=== PATIENT | female | born 1960 | race Caucasian/White ===

== ENCOUNTER → 2020-06-26 14:30 | Outpatient (BNVA) | payer OTHER, SELFPAY | PROVIDERS: PCP Internal Medicine; Visit Provider Internal Medicine | DX: R06.02 Shortness of breath (principal); R07.2 Precordial pain | CPT/HCPCS: 93005; 99202 ==

== ENCOUNTER → 2020-07-19 08:19 | Outpatient (REF) | payer OTHER, SELFPAY ==
--- NOTE | 2020-07-19 08:28 | CA_ITS ---
Transthoracic Echocardiogram Patient (Last, First, Middle): Grace Rider, Gender: Female Date of : 1960 Age: 60 Procedure Date: 07/19/2020 Procedure Type: Transthoracic Echocardiogram Location: OP Height: 167.64 cm Weight: 77.11 kg BSA: 1.87 m2 Heart Rate: bpm BP: 120 / 62 mmHg Industrial Electrician: ADARSH Referring MD: Tom Palacio MD Symptoms: R06.02 - Shortness of breath Study Quality: Good ECG Rhythm: Sinus Conclusions: - The left ventricular systolic function is normal. The visually estimated ejection fraction is between 65-70%. - No obvious valvular pathology seen on this study. Findings Left Ventricle Normal left ventricular cavity size. There is normal left ventricular wall thickness. The left ventricular systolic function is normal. The visually estimated ejection fraction is between 65-70%. There is no evidence of regional wall motion abnormalities. Diastolic function is normal for age. Right Ventricle Normal right ventricular cavity size and systolic function. Atria The left atrium is normal in size. The right atrium is normal in size. Aortic Valve The aortic valve was not well visualized. There is no aortic valve stenosis. There is no aortic valve regurgitation. Mitral Valve The mitral valve appears normal. There is trace mitral valve regurgitation. There is no mitral valve stenosis. Pulmonic Valve The pulmonic valve was not well visualized. Tricuspid Valve Normal tricuspid valve structure. There is trace tricuspid valve regurgitation. The pulmonary artery systolic pressure is normal. Great Vessels The aorta was not well visualized. The aortic annulus and aortic arch are normal in size. Venous The inferior vena cava is normal in size and collapses greater than 50% with inspiration. Pericardium/Pleural There is no evidence of pericardial effusion. Prior Study Comparison No prior study available for comparison. Recommendations, Care & Conclusions No obvious valvular pathology seen on this study. Measurements 2D Linear Measurements IVSd: 0.87 0.6-0.9/0.6-1.0 cm LVIDd: 3.44 3.9-5.3/4.2-5.9 cm LVIDd Index: 1.84 2.4-3.2/2.2-3.1 cm/m2 LVIDs: 2.48 2.0-3.6 cm LVPWd: 0.73 0.7-1.1 cm Ao Root: 2.30 2.1-3.5 cm LA Diam: 2.70 2.7-3.8/3.0-4.0 cm LAIDs Index: 1.44 1.5-2.3 cm/m2 LV Mass: 90.65 67-162/88-224 g LV Mass Index: 48.48 43-95/49-115 g/m2 LVOT Diam: 1.80 3.0+(-)1.3 cm 2D Systolic Function EF 4C: 81.20 >55% EF 2C: 78.30 >55% EF BiP: 78.60 >55% Mitral Valve MV Pk E: 0.67 MV PK A: 0.47 MV Decel Time: 158.00 E/A: 1.40 E'Lateral: 10.80 E'Medial: 8.32 E/E' Med: 8.10 E/E' Lat: 6.20 PHT: 46.00 MVA PHT: 4.78 Decel Starke: 4.26 Aortic Valve AoV Pk Betito: 1.00 AoV Pk Grad: 4.00 LVOT LVOT Pk Betito: 0.94 LVOT Mn Betito: 0.56 LVOT VTI: 0.18 LVOT Pk Grad: 4.00 LVOT Mn Grad: 2.00 LVOT Diam: 1.80 LVOT Area: 2.54 Diastolic Function MV Pk E: 0.67 MV Pk A: 0.47 E/A: 1.40 E'Medial: 8.32 E/E' Med: 8.10 E' Laterial: 10.80 E/E' Lat: 6.20 Tricuspid Valve TR Pk Betito: 2.04 TR Pk Grad: 17.00 RA Press: 3.00 RVSP: 20.00 Great Vessels Aorta Ao Root-2D: 2.30 2.0-3.7 cm Updated in Other Vendor System with Status of Final Tom Palacio MD electronically signed on 07/20/2020 12:58:24 PM with status of Final
--- NOTE | 2020-07-19 08:28 | CA_ITS ---
Acquisition Time: 2020-07-19 10:34:30 Total Exercise Time: 00:06:11 Test Indications: Dyspnea Medications: LEVOTHYROXINE Protocol: ZACKERY Max HR: 157 BPM 96% of Pred: 162 BPM Max BP: 148/084 mmHG Max Work Load: 7.2 METS Exercise stress test using Zackery protocol. Total of 6 min 11 sec. METS 7.2 , MHR of 157 and MAPHR up to 96 %. Pt tolerated well, some SOB without any anginal sx. EKG with some PVC's no ischemic changes seen during exercise or in recovery . Normotensive response to exercise. Test reviewed with Dr. Palacio. Referred By: Tom Palacio Overread By: Devon Bolden
== END ==
LOC: HO.CARD 08:19
PROVIDERS: Visit Provider Internal Medicine
DX: R07.2 Precordial pain (principal); R06.02 Shortness of breath
CPT/HCPCS: 93017; 93306

== ENCOUNTER → 2020-07-26 14:10 | Outpatient (BNVA) | payer OTHER, SELFPAY | PROVIDERS: PCP Internal Medicine; Visit Provider Internal Medicine | DX: R06.02 Shortness of breath (principal); R07.2 Precordial pain | CPT/HCPCS: 99212 ==

== ENCOUNTER 2020-08-08 11:01 | Outpatient (REF) | payer OTHER, SELFPAY ==
--- NOTE | 2020-08-08 11:00 | PFT_ITS ---
INDICATION: Dyspnea. SPIROMETRY: The FEV1 to FVC of 81% with an FEV1 of 2.52 L, which is 90% predicted, and an FVC of 3.12 L, which is 86% predicted. No significant response to bronchodilators noted. Maximum voluntary ventilation was normal at 118% predicted. LUNG VOLUMES: Total lung capacity 104% predicted. DIFFUSION CAPACITY: DLCO 80% predicted. COMPARISONS: None. INTERPRETATION: No obstructive nor restrictive ventilatory defect. No significant response to bronchodilators noted. Normal maximum voluntary ventilation. Lung volumes are within normal limits. The patient has a low normal diffusion capacity. If asthma is in the differential, methacholine challenge may be helpful in assessing for hyper-reactive airways, otherwise clinical correlation warranted. Gideon Simmons MD MR/MODL / [id number]
--- NOTE | 2020-08-08 11:59 | XR_ITS ---
EXAMINATION: XR CHEST CLINICAL INFORMATION: Shortness of breath. COMPARISON: None TECHNIQUE: 2 views of the chest were obtained. FINDINGS: No significant abnormality is noted involving the heart, lungs, mediastinum, bony thorax or soft tissues. XR/XR chest 2V IMPRESSION: No acute cardiopulmonary process.
== END 2020-08-08 11:02 | disposition home or self-care (01) ==
LOC: HO.RESP 11:01
PROVIDERS: PCP Internal Medicine; Visit Provider Internal Medicine
DX: R06.02 Shortness of breath (principal)
CPT/HCPCS: 71046; 94060; 94727; 94729

== ENCOUNTER → 2020-08-16 11:06 | Outpatient (BNVA) | payer OTHER, SELFPAY | PROVIDERS: PCP Internal Medicine; Visit Provider Internal Medicine | DX: R06.02 Shortness of breath (principal); R07.2 Precordial pain; R94.2 Abnormal results of pulmonary function studies | CPT/HCPCS: 99212 ==

== ENCOUNTER → 2020-09-11 11:36 | Outpatient (BNVA) | payer OTHER, SELFPAY | PROVIDERS: PCP Internal Medicine; Visit Provider Internal Medicine Pulmonary Disease | DX: R06.02 Shortness of breath (principal); R07.2 Precordial pain | CPT/HCPCS: 99202 ==

== ENCOUNTER → 2020-10-02 11:29 | Outpatient (BNVA) | payer OTHER, SELFPAY | PROVIDERS: PCP Internal Medicine; Visit Provider Internal Medicine Pulmonary Disease | DX: K21.9 Gastro-esophageal reflux disease without esophagitis (principal) | CPT/HCPCS: Q3014 ==

== ENCOUNTER 2020-10-29 08:03 | Outpatient (REF) | payer OTHER, SELFPAY ==
[2020-10-29 10:35] LABS: MANUAL DIFF FLAG NO
[2020-10-29 10:47] LABS: Basophils Percent Auto 0.4 % (0-2); Eosinophils Absolute Auto 0.1 X10*3/uL (0.0-0.4); Eosinophils Percent Auto 1.6 % (0-4); Hematocrit 39.6 % (37-47); Imm Gran Abs Auto 0.02 X10*3/uL (0.00-0.03); Imm Gran Pct Auto 0.3 % (0.0-0.4); Lymphocytes Absolute Auto 2.6 X10*3/uL (1.2-4.9); Lymphocytes Percent Auto 37.6 % (20-40); Mean Corpuscular HGB Conc 32.8 g/dl (31.0-35.0); Mean Corpuscular Hemoglobin 28.4 pg (27.0-33.0); Mean Corpuscular Volume 86.7 fL (80-98); Mean Platelet Volume 10.8 fL (9.4-12.3); Monocytes Absolute Auto 0.6 X10*3/uL (0.1-1.2); Monocytes Percent Auto 8.5 % (2-11); Neutrophils Absolute Auto 3.6 X10*3/uL (2.0-8.3); Neutrophils Percent Auto 51.6 % (45-73); Platelet Count 277 X10*3/uL (160-400); Red Blood Count 4.57 X10*6/uL (4.20-5.50); Red Cell Distribution Width 12.5 % (11.0-16.0)
[2020-10-29 11:21] LABS: Alanine Aminotransferase 26 U/L (0-31); Albumin Level 4.4 g/dL (3.5-5.0); Alkaline Phosphatase 87 U/L (39-117); Anion Gap 14 (12-20); Aspartate Amino Transferase 24 U/L (5-31); Bilirubin Total 0.3 mg/dL (0.0-1.0); Blood Urea Nitrogen 15 mg/dL (9-16); Calcium 9.7 mg/dL (8.4-10.2); Carbon Dioxide 27 mmol/L (22-29); Chloride 106 mmol/L (96-108); Estimated Glomerular Filt Rate > 60; Glucose Random 92 mg/dL (60-115); Potassium 4.8 mmol/L (3.3-5.1); Sodium 142 mmol/L (135-145); Total Protein 7.3 g/dL (6.5-8.0)
== END 2020-10-29 08:04 | disposition home or self-care (01) ==
LOC: HO.LAB 08:03
PROVIDERS: PCP Internal Medicine; Visit Provider Physician Assistant
DX: R10.11 Right upper quadrant pain (principal); K21.9 Gastro-esophageal reflux disease without esophagitis; R74.01 Elevation of levels of liver transaminase levels; Z79.899 Other long term (current) drug therapy
CPT/HCPCS: 36415; 80053; 85025; 99212

== ENCOUNTER 2020-11-25 | Outpatient (REF) | payer OTHER, SELFPAY | END 2020-11-25 00:01 | disposition home or self-care (01) | LOC: HO.LNP | PROVIDERS: Visit Provider Physician Assistant | DX: A04.8 Other specified bacterial intestinal infections (principal) | CPT/HCPCS: 87338 ==

== ENCOUNTER 2020-11-29 10:39 | Outpatient (REF) | payer OTHER, SELFPAY ==
--- NOTE | ~2020-11-29 | FL_ITS ---
EXAMINATION: FL BARIUM SWALLOW CLINICAL INFORMATION: K21.9 - Gastro-esophageal reflux disease without esophagitis COMPARISON: Chest radiographs 08/08/2020 TECHNIQUE: Barium swallow examination is performed using fluoroscopic evaluation in addition to multiple fluoroscopic spot views, including cine images during swallowing. The patient is imaged both upright and prone and using both thick and thin sulfate along with effervescent granules. Fluoroscopy time: 1.6 minutes DAP: 5.32 Gycm2 Images: 33 FINDINGS: Swallowing function is normal and there is no aspiration. The cervical esophagus has no web or diverticulum or stricture. The cervical thoracic junction appears normal. The thoracic esophagus shows normal motility with no obstruction, stricture, or ulceration. There is no hiatal hernia or reflux seen despite use of provocative maneuvers (prone Valsalva and water siphon test, respectively). A cursory view of the upper abdomen shows no gastric outlet obstruction. There are degenerative changes cervical spine with disc narrowing and vertebral spurring C4-C5, C5-C6, and C6-C7. FL/FL barium swallow IMPRESSION: 1. Normal barium swallow. 2. Degenerative disc changes cervical spine C4-C7.
== END 2020-11-29 10:40 | disposition home or self-care (01) ==
LOC: HO.XRAY 10:39
PROVIDERS: PCP Internal Medicine; Visit Provider Physician Assistant
DX: K21.9 Gastro-esophageal reflux disease without esophagitis (principal)
CPT/HCPCS: 74220

== ENCOUNTER → 2021-03-25 13:24 | Outpatient (BNVA) | payer OTHER, SELFPAY | PROVIDERS: PCP Internal Medicine; Referring Provider Internal Medicine; Visit Provider Physician Assistant | DX: Z01.818 Encounter for other preprocedural examination (principal); K21.9 Gastro-esophageal reflux disease without esophagitis; R19.7 Diarrhea, unspecified | CPT/HCPCS: 99212 ==